=== PATIENT | female | born 1965 | race Hispanic/Latino ===

== ENCOUNTER 2025-01-15 17:41 | Emergency (ER) | payer BC ==
[~2025-01-15] VITALS: Ht 154.9 cm; Wt 61.2 kg
[2025-01-15 17:55] VITALS: PULSE 78; RESP 15; TEMP 98
[2025-01-15] MEDS: TRAMADOL HCL 50 MG TAB PO STA (18:13)
[2025-01-15] MEDS ORDERED: ULTRAM 50MG50 MG PO (19:00)
[2025-01-15 19:43] VITALS: BP 143/84; PULSE 86; RESP 17; TEMP 97.9; O2SAT 97
[2025-01-22] MEDS ORDERED: LEVOTHYROXINE112 MCG PO (15:20)
[2025-01-22] MEDS ORDERED: ALLEGRA ALLERGY60 MG PO (15:20)
[2025-01-22] MEDS ORDERED: VALSARTAN-HCTZ1 EACH PO (15:20)
[2025-01-22] MEDS ORDERED: TYLENOL325 MG PO (15:21)
[2025-01-22] MEDS ORDERED: BIOTIN PO (15:21)
[2025-01-22] MEDS ORDERED: MOUNJARO2.5 MG/0.5 SC (15:24)
== END 2025-01-15 19:46 | disposition home or self-care (01) ==
LOC: ER 17:51
DX: S82.491A Other fracture of shaft of right fibula, initial encounter for closed fracture (principal); W01.0XXA Fall on same level from slipping, tripping and stumbling without subsequent striking against object, initial encounter; Y93.01 Activity, walking, marching and hiking; Y92.89 Other specified places as the place of occurrence of the external cause; I10 Essential (primary) hypertension; E03.9 Hypothyroidism, unspecified
CPT/HCPCS: 99284

== ENCOUNTER → 2025-01-25 | Day surgery (SDC) | payer BC ==
[2025-01-23 10:30] LABS: BASOPHILS % 0.5 % (0.0-1.0); EOSINOPHILS # (AUTO) 0.1 (0.0-0.4); EOSINOPHILS % 3.2 % (0.0-6.0); HEMATOCRIT 36.3 % (34.2-44.1); HEMOGLOBIN 12.4 g/dL (12.0-16.0); LYMPHOCYTES # (AUTO) 1.5 (1.0-3.2); LYMPHOCYTES % 33.5 % (18.0-39.1); MEAN CORPUSCULAR HGB CONC 34.2 g/dL (31-35); MEAN CORPUSCULAR VOLUME 96.5 fL (81-99); MONOCYTES # (AUTO) 0.4 (0.2-0.8); MONOCYTES % 9.6 % (4.4-11.3); NEUTROPHILS # (AUTO) 2.3 (2.1-6.9); PLATELET COUNT 297 x10e3/uL (140-360); RED BLOOD COUNT 3.76 x10e6/uL (3.6-5.1); RED CELL DISTRIBUTION WIDTH 12.7 % (11.7-14.4); WHITE BLOOD COUNT 4.36 x10e3/uL (4.8-10.8)
[2025-01-23 11:03] LABS: ANION GAP 13.2 mmol/L (8-16); CALCIUM 8.8 mg/dL (8.4-10.2); CREATININE, SERUM 0.78 mg/dL (0.57-1.11); POTASSIUM 4.2 mmol/L (3.5-5.1)
[~2025-01-25] MED LIST: ACETAMINOPHEN 1000 MG/100 ML 100 ML IV ONE; ALLEGRA ALLERGY60 MG PO; BIOTIN PO; BUPIVACAINE 0.5%/EPI 30 ML SDV INJ ONE; DEXAMETHASONE SOD PHOS INJ 4 MG/ML SDV ONE; EPHEDRINE SULFATE INJ 50 MG/ML VIAL ONE; FAMOTIDINE 20 MG/2 ML VIAL IV ONE; FENTANYL CITRATE/PF 100MCG/2 ML INJ ONE; LEVOTHYROXINE112 MCG PO; LIDOCAINE HCL 2% LOCAL INJ 5 ML SDV VIAL INJ ONE; MIDAZOLAM HCL 2 MG/2 ML VIAL ONE; MOUNJARO2.5 MG/0.5 SC; ONDANSETRON HCL INJ 2MG/ML 2ML 2 MG/ML VIAL ONE; PROPOFOL IV EMULSION 10 MG/ML 20 ML VIAL ONE; SEVOFLURANE INHAL SOLN 250 ML PEN BTL ONE; TYLENOL325 MG PO; ULTRAM 50MG50 MG PO; VALSARTAN-HCTZ1 EACH PO
[2025-01-25] MEDS: LACTATED RINGER'S 1,000 ML ONE (10:26)
[2025-01-25] MEDS: CEFAZOLIN SODIUM 2 GM ONE (10:30)
[2025-01-25 14:10] VITALS: BP 145/88; PULSE 82; RESP 18; O2SAT 99
== END | disposition home or self-care (01) ==
LOC: OR 09:48
PROVIDERS: ATTEND Podiatrist Foot Surgery
DX: S82.431A Displaced oblique fracture of shaft of right fibula, initial encounter for closed fracture (principal); S82.421A Displaced transverse fracture of shaft of right fibula, initial encounter for closed fracture; M25.371 Other instability, right ankle; I10 Essential (primary) hypertension; E03.9 Hypothyroidism, unspecified; Z01.810 Encounter for preprocedural cardiovascular examination; Z01.812 Encounter for preprocedural laboratory examination; Z01.818 Encounter for other preprocedural examination; Z79.899 Other long term (current) drug therapy
CPT/HCPCS: 27792; 36415; 71046; 76000; 80048; 85025; 93005; C1713; C1734; J0131; J1100; J1308; J2003; J2250; J2405; J2704; J3010; J7121